=== PATIENT | male | born 1935 | race Caucasian/White ===

== ENCOUNTER 2017-02-17 19:31 | Emergency (ER) | payer OTHER ==
--- NOTE | ~2017-02-17 | CT2 ---
[facility] A Service of [facility] & [facility] RADIOLOGY TEXT RESULTS PATIENT: AMA PÉREZ LOCATION: [facility] : 37 UNIT #: [id number] AGE: [address]: Eugenia Hassan MD SEX: M ORDER DR: [id number] [facility] [address] [place], [place] [address] [id number] MR#: [id number] Acc #: [id number] NAME: AMA PÉREZ : 1935 SEX: M STUDY DATE/TIME: 02/17/2017 19:54 UNIT: [facility] ROOM: STUDY DESCRIPTION: CT Abd and Pelv W Cont Attending Physician: Eugenia Hassan M.D. Ordering Physician: Eugenia Hassan M.D. Primary Care Physician: Krishna Lomeli M.D. MEDICAL IMAGING REPORT This report is preliminary unless electronic signature is present EXAM CT abdomen and pelvis with contrast. INDICATIONS Back pain for 2 months radiating to abdomen. TECHNIQUE Patient was given 100 mL of Isovue 370 and axial 5 mm images were obtained through the abdomen and pelvis. This CT exam was performed with one or more of the following radiation dose reduction techniques: automatic exposure control, adjustment of mA and/or kV according to patient size, and iterative reconstruction. FINDINGS The liver contains small cysts. There are at least 5 present measuring up to 15 mm in diameter. The gallbladder, spleen, pancreas and adrenal glands are normal. The right kidney is normal. The left kidney has a large cyst measuring 11 cm in diameter. This measures 0 Hounsfield units. There is a much smaller cyst projecting anteriorly off of the left kidney measuring only 12 mm and it measures 11 Hounsfield units. The aorta is normal in size and there is no adenopathy. The bowel is normal except some sigmoid diverticula. The bladder and prostate gland are normal. The bones show degenerative changes and also show compression fractures of T12, L1, L4 and L5. IMPRESSION 1. 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 2. Left renal cyst. 3. Otherwise normal CT abdomen and pelvis. 1. Dictated by... Aurelio Medina M.D. [facility] A Service of [facility] & [facility] RADIOLOGY TEXT RESULTS PATIENT: AMA PÉREZ LOCATION: [facility] #: [id number] : 37 UNIT #: [id number] AGE: [address]: Eugenia Hassan MD SEX: M ORDER DR: THIS IS AN ELECTRONICALLY VERIFIED REPORT Aurelio Medina M.D. at 02/18/2017 2:00 PM FEL/pc TD: 02/18/2017 09:14 JOB #: [id number] MEDICAL IMAGING REPORT Page 1 of 1 COPY
[2017-02-17 19:08] LABS: BASOPHIL% 0.8 % (0-2.5); EOSINOPHIL# 0.2 X10e3 (0-0.7); EOSINOPHIL% 5.2 % (0.0-7.0); HEMATOCRIT 36.5 % (38.0-50.0); HEMOGLOBIN 12.4 gm/dL (13.0-16.0); LYMPHOCYTE# 1.8 X10e3 (1.0-3.5); MEAN CELL VOLUME 90.4 FL (83-96); MEAN CORPUSCULAR HEMOGLOBIN 30.6 PG (28-34); MEAN CORPUSCULAR HGB CONC 33.9 g/dL (30-36); MEAN PLATELET VOLUME 7.6 FL (6.5-11.5); MONOCYTE# 0.5 X10e3 (0-1.0); MONOCYTE% 10.9 % (3.0-12.0); NEUTROPHIL# 1.9 X10e3 (1.5-7.1); NEUTROPHIL% 42.1 % (40-75); PLATELET COUNT 377 X10e3 (140-420); RED BLOOD COUNT 4.04 X10e (3.90-5.60); RED CELL DISTRIBUTION WIDTH 13.8 % (11.0-15.5); WHITE BLOOD COUNT 4.5 X10e3 (4.0-10.5)
[2017-02-17 19:24] LABS: DIFF IND NO
[2017-02-17 19:30] LABS: URINE SOURCE CLEAN CATCH
[~2017-02-17 19:31] MED LIST: ASPIRIN PO; CARDURA PO; CIPRO PO; CLONAZEPAM0.5 MG PO; COLACE PO; COLACE50 MG PO; DILANTIN KAPSE100 MG PO; DILANTIN PO; FLOMAX0.4 MG PO; HYDROCODON-ACE1 EAC4 PO; LISINOPRIL10 MG PO; LORTAB 10/500 T1 TAB PO; LORTAB 7.5-5001 TAB PO; MIRALAX17 G1 PO; MIRALAX17 GM PO; PHENOBARB PO; PHENOBARBITAL30 M1 PO; PHENOBARBITAL32.4 MG PO; PRED FORTE1 ML OP; STOOL SOFTENER100 M1 PO; ZITHROMAX PO; ZYMAXID2.5 ML OP
[2017-02-17 19:35] LABS: ALBUMIN SERUM 4.3 g/dL (3.5-5.0); BILIRUBIN, DIRECT 0.1 mg/dL (0.0-0.2); BILIRUBIN,INDIRECT 0.3 mg/dL (0.0-0.9); BILIRUBIN,TOTAL 0.4 mg/dL (0.2-2.0); CALCIUM SERUM 8.9 mg/dL (8.4-10.2); CREATININE SERUM 0.6 mg/dL (0.6-1.4); PROTEIN TOTAL SERUM 6.8 g/dL (6.0-8.3)
[2017-02-17 19:35] LABS: URINE APPEARANCE CLEAR; URINE BILIRUBIN NEG (NEG); URINE BLOOD NEG (NEG); URINE COLOR YELLOW; URINE GLUCOSE NEG (NEG); URINE KETONE NEG (NEG); URINE LEUKOCYTE ESTERASE NEG (NEG); URINE NITRATE NEG (NEG); URINE PH 7.5 (5-8); URINE PROTEIN NEG (NEG); URINE SPECIFIC GRAVITY 1.013 (1.003-1.035); URINE UROBILINOGEN 0.2 MG/DL (NEG)
[2017-02-17 19:39] LABS: CULTURE INDICATED? NO
== END 2017-02-17 22:50 | disposition home or self-care (01) ==
LOC: CED 19:31
PROVIDERS: Emergency Medicine
DX: M54.5 Low back pain (principal); I10 Essential (primary) hypertension; Z88.2 Allergy status to sulfonamides; Z88.1 Allergy status to other antibiotic agents; Z88.8 Allergy status to other drugs, medicaments and biological substances; Z87.891 Personal history of nicotine dependence
CPT/HCPCS: 36415; 74177; 80048; 80076; 81003; 85025; 96374; 96375; 99284; J1170; J2405; Q9967